=== PATIENT | male | born 1955 | race Hispanic/Latino ===

== ENCOUNTER 2021-02-05 09:42 | Inpatient (IN) | payer OTHER ==
[~2021-02-05] VITALS: Ht 167.6 cm; Wt 70.0 kg
[2021-02-05] MEDS ORDERED: MECL-226 PO (09:58)
[2021-02-05] MEDS ORDERED: CANA300T PO (09:58)
[2021-02-05] MEDS ORDERED: METF-445 PO (09:58)
[2021-02-05] MEDS ORDERED: LOSA50TA64 PO (09:58)
[2021-02-05] MEDS ORDERED: METO-409 PO (10:02)
[2021-02-05] MEDS ORDERED: AMLO-257 PO (10:02)
[2021-02-05 10:10] LABS: BASOPHILS % (AUTO) 0.3 % (0.0-5.0); EOSINOPHILS % (AUTO) 1.7 % (0.0-8.0); HEMATOCRIT 31.4 % (42-54); LYMPHOCYTES % (AUTO) 18.8 % (21.0-51.0); MEAN CORPUSCULAR HEMOGLOBIN 29.8 pg (27.0-33.0); MEAN CORPUSCULAR HGB CONC 35.4 g/dL (32.0-36.0); MEAN CORPUSCULAR VOLUME 84.4 fL (79-99); MONOCYTES % (AUTO) 6.2 % (3.0-13.0); NEUTROPHILS % (AUTO) 72.7 % (40.0-77.0); PLATELET COUNT (AUTO) 206 K/uL (130-400); RED BLOOD CELL COUNT(AUTO) 3.72 MIL/uL (4.50-6.20); RED CELL DISTRIBUTION WIDTH 12.3 % (11.0-15.5); WHITE BLOOD COUNT (AUTO) 9.5 K/uL (4.8-10.8)
[2021-02-05 10:15] LABS: POTASSIUM 4.2 mmol/L (3.5-5.1)
[2021-02-05 10:19] LABS: ALBUMIN 2.4 g/dL (3.5-5.0); BILIRUBIN,TOTAL 0.6 mg/dL (0.2-1.0); TOTAL PROTEIN, SERUM 6.1 g/dL (6.0-8.3)
[2021-02-05] MEDS: HYDRALAZINE 20MG/ML VIAL ONE ×2 (10:28→10:31)
[2021-02-05] MEDS: HYDRALAZINE 20MG/ML VIAL IV SCH ×2 (10:30→11:17)
[2021-02-05] MEDS ORDERED: ASPIRIN 81MG CHEW TAB PO ONE (17:30)
[2021-02-05 17:38] LABS: HEMOGLOBIN A1C 10.6 % (4.0-6.0)
[2021-02-05 17:50] LABS: CREATININE 2.7 mg/dL (0.5-1.5); POTASSIUM 4.1 mmol/L (3.5-5.1)
[2021-02-05 18:03] LABS: MAGNESIUM 1.8 mg/dL (1.80-2.40); PHOSPHORUS 4.8 mg/dL (2.5-4.9); THYROID STIMULATING HORMONE 3.2 uIU/mL (0.36-3.74); URIC ACID 5.1 mg/dL (2.6-7.2)
[2021-02-05] MEDS: 0.9%NACL 1000ML 1,000 ML IV SCH (19:00)
[2021-02-05] MEDS: CEFTRIAXONE 1G VIAL IVP SCH (19:09)
[2021-02-05] MEDS ORDERED: ASPIRIN 81MG CHEW TAB ONE (20:16)
[2021-02-05] MEDS: ATORVASTATIN 40 MG TABLET PO SCH (20:24)
[2021-02-05] MEDS ORDERED: MAGNESIUM 2GM PREMIX 50ML 50 ML IV PRN (22:30)
[2021-02-05 22:35] VITALS: BP 204/98
[2021-02-05] MEDS ORDERED: MECL-160 PO (23:03)
[2021-02-05 23:14] LABS: APPEARANCE,URINE Clear (CLEAR); BILIRUBIN,URINE Negative (NEGATIVE); COLOR,URINE Yellow (YELLOW); GLUCOSE, URINE (UA) >=1000 mg/dL (NEGATIVE); KETONES,URINE 15 mg/dL (NEGATIVE); LEUKOCYTE ESTERASE ,URINE Negative (NEGATIVE); NITRATE,URINE Negative (NEGATIVE); OCCULT BLOOD,URINE Moderate (NEGATIVE); PROTEIN,URINE >=1000 mg/dL (NEGATIVE)
[2021-02-05 23:18] LABS: CREATININE,URINE RANDOM 78 mg/dL (30-135); SODIUM,URINE RANDOM 46 mmol/l (40-220)
[2021-02-05 23:41] LABS: BACTERIA,URINE None Seen /HPF (None Seen); WBC,URINE 0-1 /HPF (0-1)
[2021-02-05 23:45] LABS: HYALINE CASTS, URINE 0-1 /LPF (0-1 /LPF); SQUAMOUS EPITHELIAL CELL,UR Few /HPF (0-2)
[2021-02-06 03:00] VITALS: BP 207/97
[2021-02-06 03:55] LABS: BASOPHILS % (AUTO) 0.5 % (0.0-5.0); EOSINOPHILS % (AUTO) 1.4 % (0.0-8.0); HEMATOCRIT 30.6 % (42-54); LYMPHOCYTES % (AUTO) 19.2 % (21.0-51.0); MEAN CORPUSCULAR HEMOGLOBIN 29.9 pg (27.0-33.0); MEAN CORPUSCULAR HGB CONC 34.6 g/dL (32.0-36.0); MEAN CORPUSCULAR VOLUME 86.2 fL (79-99); MONOCYTES % (AUTO) 7.8 % (3.0-13.0); NEUTROPHILS % (AUTO) 70.7 % (40.0-77.0); PLATELET COUNT (AUTO) 218 K/uL (130-400); RED BLOOD CELL COUNT(AUTO) 3.55 MIL/uL (4.50-6.20); RED CELL DISTRIBUTION WIDTH 12.2 % (11.0-15.5); WHITE BLOOD COUNT (AUTO) 9.8 K/uL (4.8-10.8)
[2021-02-06 04:09] LABS: CREATININE 2.8 mg/dL (0.5-1.5); MAGNESIUM 2.7 mg/dL (1.80-2.40); PHOSPHORUS 5.9 mg/dL (2.5-4.9); POTASSIUM 4.1 mmol/L (3.5-5.1); URIC ACID 5.5 mg/dL (2.6-7.2)
[2021-02-06] MEDS ORDERED: INSULIN HUMULIN R 100 UNIT/ML 3ML ONE (06:57)
[2021-02-06] MEDS: INSULIN HUMULIN R 100 UNIT/ML 3ML SQ SCH ×4 (07:00→20:27)
[2021-02-06 07:30] VITALS: BP 199/96
[2021-02-06] MEDS: HYDRALAZINE 20MG/ML VIAL IV SCH (08:48)
[2021-02-06] MEDS ORDERED: ASPIRIN 81MG CHEW TAB PO SCH (09:00)
[2021-02-06 11:00] VITALS: BP 169/95
[2021-02-06] MEDS: METOPROLOL SUCCINATE 50 MG TAB.SR.24H PO SCH (11:01)
[2021-02-06] MEDS: LOSARTAN 25 MG TABLET PO SCH (11:01)
[2021-02-06] MEDS: ASPIRIN 325MG EC TAB PO SCH (11:01)
[2021-02-06] MEDS: CLOPIDOGREL 75MG TAB PO SCH (11:02)
[2021-02-06] MEDS ORDERED: INSULIN HUMULIN R 100 UNIT/ML 3ML SQ ONE (12:00)
[2021-02-06] MEDS: 0.9%NACL 1000ML 1,000 ML IV SCH (13:00)
[2021-02-06 16:00] VITALS: BP 179/91
[2021-02-06] MEDS: CEFTRIAXONE 1G VIAL IVP SCH (16:55)
[2021-02-06 20:16] VITALS: BP 177/88
[2021-02-06] MEDS: INSULIN GLARGINE 100 UNITS/ML 10 ML VIAL SQ SCH (20:29)
[2021-02-06] MEDS: ATORVASTATIN 40 MG TABLET PO SCH (20:36)
[2021-02-06 23:25] VITALS: BP 177/83
[2021-02-07 03:53] VITALS: BP 229/98
[2021-02-07] MEDS: HYDRALAZINE 20MG/ML VIAL IV PRN (04:03)
[2021-02-07 04:16] LABS: HEMATOCRIT 28.5 % (42-54); MEAN CORPUSCULAR HEMOGLOBIN 29.8 pg (27.0-33.0); MEAN CORPUSCULAR HGB CONC 34.7 g/dL (32.0-36.0); MEAN CORPUSCULAR VOLUME 85.8 fL (79-99); PLATELET COUNT (AUTO) 195 K/uL (130-400); RED BLOOD CELL COUNT(AUTO) 3.32 MIL/uL (4.50-6.20); RED CELL DISTRIBUTION WIDTH 12.2 % (11.0-15.5); WHITE BLOOD COUNT (AUTO) 8.2 K/uL (4.8-10.8)
[2021-02-07 04:34] LABS: CREATININE 2.5 mg/dL (0.5-1.5); POTASSIUM 3.6 mmol/L (3.5-5.1)
[2021-02-07 05:08] LABS: BASOPHILS % (MANUAL) 2 % (0-2); EOSINOPHILS % (MANUAL) 1 % (1-6); LYMPHOCYTES % (MANUAL) 28 % (22-44); MONOCYTES % (MANUAL) 3 % (2-9); SEGMENTED NEUTROPHILS % 66 % (40-70)
[2021-02-07 05:09] LABS: MAN.DIFF COMMENT-IMPRESSION MANUAL DIFFERENTIAL
[2021-02-07 05:12] LABS: PLATELET MORPHOLOGY COMMENT ADEQUATE
[2021-02-07] MEDS: INSULIN HUMULIN R 100 UNIT/ML 3ML SQ SCH ×4 (06:08→20:45)
[2021-02-07] MEDS ORDERED: MIDAZOLAM HCL 1 MG/ML 2ML VIAL ONE (07:18)
[2021-02-07] MEDS ORDERED: FENTANYL CITRATE PF 50 MCG/1 ML 2ML VIAL ONE (07:18)
[2021-02-07 08:58] VITALS: BP 188/96
[2021-02-07] MEDS: 0.9%NACL 1000ML 1,000 ML IV SCH (09:00)
[2021-02-07] MEDS: METOPROLOL SUCCINATE 50 MG TAB.SR.24H PO SCH (10:16)
[2021-02-07] MEDS: LOSARTAN 25 MG TABLET PO SCH (10:16)
[2021-02-07] MEDS: ASPIRIN 325MG EC TAB PO SCH (10:17)
[2021-02-07] MEDS: CLOPIDOGREL 75MG TAB PO SCH (10:17)
[2021-02-07] MEDS: HYDRALAZINE 20MG/ML VIAL IV SCH (10:30)
[2021-02-07 11:02] VITALS: BP 184/91
[2021-02-07 15:39] VITALS: BP 189/92
[2021-02-07] MEDS: CEFTRIAXONE 1G VIAL IVP SCH (17:42)
[2021-02-07] MEDS: ATORVASTATIN 40 MG TABLET PO SCH (19:40)
[2021-02-07 19:48] VITALS: BP 217/101
[2021-02-07] MEDS: INSULIN GLARGINE 100 UNITS/ML 10 ML VIAL SQ SCH (20:45)
[2021-02-07 23:20] VITALS: BP 180/93
[2021-02-08 03:43] VITALS: BP 190/97
[2021-02-08 04:03] LABS: BASOPHILS % (AUTO) 0.3 % (0.0-5.0); EOSINOPHILS % (AUTO) 2.6 % (0.0-8.0); HEMATOCRIT 27.9 % (42-54); LYMPHOCYTES % (AUTO) 14.4 % (21.0-51.0); MEAN CORPUSCULAR HGB CONC 34.8 g/dL (32.0-36.0); MEAN CORPUSCULAR VOLUME 86.4 fL (79-99); MONOCYTES % (AUTO) 7.5 % (3.0-13.0); NEUTROPHILS % (AUTO) 74.9 % (40.0-77.0); PLATELET COUNT (AUTO) 193 K/uL (130-400); RED BLOOD CELL COUNT(AUTO) 3.23 MIL/uL (4.50-6.20); RED CELL DISTRIBUTION WIDTH 12.1 % (11.0-15.5); WHITE BLOOD COUNT (AUTO) 8.6 K/uL (4.8-10.8)
[2021-02-08 04:17] LABS: CREATININE 2.5 mg/dL (0.5-1.5); POTASSIUM 3.4 mmol/L (3.5-5.1)
[2021-02-08] MEDS: 0.9%NACL 1000ML 1,000 ML IV SCH (04:19)
[2021-02-08] MEDS: INSULIN HUMULIN R 100 UNIT/ML 3ML SQ SCH ×4 (06:07→20:17)
[2021-02-08 07:44] VITALS: BP 193/90
[2021-02-08] MEDS: ASPIRIN 325MG EC TAB PO SCH (07:51)
[2021-02-08] MEDS: CLOPIDOGREL 75MG TAB PO SCH (07:51)
[2021-02-08] MEDS: LOSARTAN 25 MG TABLET PO SCH (07:51)
[2021-02-08] MEDS: METOPROLOL SUCCINATE 50 MG TAB.SR.24H PO SCH (07:51)
[2021-02-08] MEDS: HYDRALAZINE 20MG/ML VIAL IV SCH (08:51)
[2021-02-08] MEDS: ACETAMINOPHEN 325 MG TAB PO PRN (08:58)
[2021-02-08] MEDS: HYDRALAZINE 20MG/ML VIAL IV PRN ×2 (10:34→20:15)
[2021-02-08 10:58] VITALS: BP 240/99
[2021-02-08] MEDS ORDERED: KCL 20 MEQ ERTAB PO ONE (16:00)
[2021-02-08 16:13] VITALS: BP 188/93
[2021-02-08] MEDS: CEFTRIAXONE 1G VIAL IVP SCH (16:53)
[2021-02-08 19:40] VITALS: BP 212/102
[2021-02-08] MEDS: LACTULOSE 20 GM/30 ML UDCUP PO SCH (20:03)
[2021-02-08] MEDS: ATORVASTATIN 40 MG TABLET PO SCH (20:03)
[2021-02-08] MEDS: INSULIN GLARGINE 100 UNITS/ML 10 ML VIAL SQ SCH (20:16)
[2021-02-08] MEDS ORDERED: DOCUSATE SODIUM 100 MG CAP PO SCH (21:00)
[2021-02-08 23:41] VITALS: BP 148/75
[2021-02-09 04:00] VITALS: BP 162/79
[2021-02-09] MEDS: INSULIN HUMULIN R 100 UNIT/ML 3ML SQ SCH ×4 (05:30→21:19)
[2021-02-09 08:03] VITALS: BP 184/111
[2021-02-09] MEDS: LACTULOSE 20 GM/30 ML UDCUP PO SCH ×2 (09:00→21:00)
[2021-02-09] MEDS: LOSARTAN 50 MG TABLET PO SCH (09:38)
[2021-02-09] MEDS: ASPIRIN 325MG EC TAB PO SCH (09:38)
[2021-02-09] MEDS: CLOPIDOGREL 75MG TAB PO SCH (09:38)
[2021-02-09] MEDS: AMLODIPINE 5 MG TAB PO SCH (09:39)
[2021-02-09] MEDS: METOPROLOL SUCCINATE 50 MG TAB.SR.24H PO SCH (09:39)
[2021-02-09 09:52] LABS: CREATININE 2.6 mg/dL (0.5-1.5); POTASSIUM 4.1 mmol/L (3.5-5.1)
[2021-02-09] MEDS: HYDRALAZINE 20MG/ML VIAL IV SCH (10:30)
[2021-02-09 11:17] VITALS: BP 162/85
[2021-02-09 15:49] VITALS: BP 168/80
[2021-02-09] MEDS: CEFTRIAXONE 1G VIAL IVP SCH (17:08)
[2021-02-09 21:00] VITALS: BP 172/94
[2021-02-09] MEDS: INSULIN GLARGINE 100 UNITS/ML 10 ML VIAL SQ SCH (21:17)
[2021-02-09] MEDS: ACETAMINOPHEN 325 MG TAB PO PRN (21:18)
[2021-02-09] MEDS: ATORVASTATIN 40 MG TABLET PO SCH (21:18)
[2021-02-09] MEDS ORDERED: ZOLPIDEM TARTRATE 5 MG TAB PO PRN (23:00)
[2021-02-10 00:08] VITALS: BP 187/90
[2021-02-10] MEDS ORDERED: ZOLPIDEM TARTRATE 5 MG TAB PO PRN (00:30)
[2021-02-10 04:00] VITALS: BP 172/89
[2021-02-10] MEDS: INSULIN HUMULIN R 100 UNIT/ML 3ML SQ SCH ×4 (06:08→21:00)
[2021-02-10] MEDS: HYDRALAZINE 20MG/ML VIAL IV SCH (07:35)
[2021-02-10 08:05] VITALS: BP 221/107
[2021-02-10] MEDS: LOSARTAN 50 MG TABLET PO SCH (08:13)
[2021-02-10] MEDS: AMLODIPINE 5 MG TAB PO SCH (08:13)
[2021-02-10] MEDS: CLOPIDOGREL 75MG TAB PO SCH (08:13)
[2021-02-10] MEDS: ASPIRIN 325MG EC TAB PO SCH (08:14)
[2021-02-10] MEDS: METOPROLOL SUCCINATE 50 MG TAB.SR.24H PO SCH (08:14)
[2021-02-10] MEDS: LACTULOSE 20 GM/30 ML UDCUP PO SCH ×2 (08:14→19:47)
[2021-02-10] MEDS: HYDRALAZINE 20MG/ML VIAL IV PRN ×2 (08:47→18:29)
[2021-02-10 11:49] VITALS: BP 173/76
[2021-02-10 16:00] VITALS: BP 203/94
[2021-02-10] MEDS: CEFTRIAXONE 1G VIAL IVP SCH (18:29)
[2021-02-10] MEDS: ATORVASTATIN 40 MG TABLET PO SCH (19:48)
[2021-02-10 20:08] VITALS: BP 130/86
[2021-02-10] MEDS: INSULIN GLARGINE 100 UNITS/ML 10 ML VIAL SQ SCH (21:23)
[2021-02-11] VITALS (9 sets, daily range): BP systolic 138–201; BP diastolic 68–102
[2021-02-11 03:47] LABS: APPEARANCE,URINE Clear (CLEAR); BILIRUBIN,URINE Negative (NEGATIVE); COLOR,URINE Yellow (YELLOW); GLUCOSE, URINE (UA) >=1000 mg/dL (NEGATIVE); KETONES,URINE Negative (NEGATIVE); LEUKOCYTE ESTERASE ,URINE Negative (NEGATIVE); NITRATE,URINE Negative (NEGATIVE); OCCULT BLOOD,URINE Small (NEGATIVE); PH,URINE 5.5 (5.0-8.0); PROTEIN,URINE >=1000 mg/dL (NEGATIVE); UROBILINOGEN,URINE 0.2 mg/dL (0.2-1.0)
[2021-02-11 04:03] LABS: BACTERIA,URINE None Seen /HPF (None Seen); MUCUS,URINE Rare LPF (None Seen); RBC,URINE 0-1 /HPF (0-1); SQUAMOUS EPITHELIAL CELL,UR Rare /HPF (0-2); WBC,URINE None Seen /HPF (0-1); YEAST,URINE BUDDING None Seen /HPF (None Seen)
[2021-02-11] MEDS: HYDRALAZINE 20MG/ML VIAL IV PRN ×2 (04:20→16:31)
[2021-02-11] MEDS: INSULIN HUMULIN R 100 UNIT/ML 3ML SQ SCH ×4 (06:21→21:00)
[2021-02-11] MEDS: AMLODIPINE 5 MG TAB PO SCH (07:45)
[2021-02-11] MEDS: CLOPIDOGREL 75MG TAB PO SCH (07:45)
[2021-02-11] MEDS: METOPROLOL SUCCINATE 50 MG TAB.SR.24H PO SCH (07:46)
[2021-02-11] MEDS: LOSARTAN 50 MG TABLET PO SCH (07:46)
[2021-02-11] MEDS: ACETAMINOPHEN 325 MG TAB PO PRN (07:46)
[2021-02-11] MEDS: LACTULOSE 20 GM/30 ML UDCUP PO SCH ×2 (07:46→21:08)
[2021-02-11 08:27] LABS: HEMATOCRIT 28.7 % (42-54); MEAN CORPUSCULAR HEMOGLOBIN 29.8 pg (27.0-33.0); MEAN CORPUSCULAR HGB CONC 34.1 g/dL (32.0-36.0); MEAN CORPUSCULAR VOLUME 87.2 fL (79-99); RED BLOOD CELL COUNT(AUTO) 3.29 MIL/uL (4.50-6.20); RED CELL DISTRIBUTION WIDTH 12.4 % (11.0-15.5); RETICULOCYTE % (AUTO) 1.49 % (0.42-2.23); WHITE BLOOD COUNT (AUTO) 8.3 K/uL (4.8-10.8)
[2021-02-11 08:41] LABS: ALBUMIN 2.1 g/dL (3.5-5.0); CREATININE 2.7 mg/dL (0.5-1.5); POTASSIUM 3.8 mmol/L (3.5-5.1)
[2021-02-11 08:57] LABS: % IRON SATURATION 24.2 % (30-44)
[2021-02-11] MEDS ORDERED: ASPIRIN 81 MG EC TAB PO SCH (09:00)
[2021-02-11] MEDS ORDERED: HYDROCHLOROTHIAZIDE 25 MG TABLET PO SCH (09:00)
[2021-02-11] MEDS ORDERED: METOPROLOL SUCCINATE 50 MG TAB.SR.24H PO SCH (09:00)
[2021-02-11 09:13] LABS: BILIRUBIN,TOTAL 0.3 mg/dL (0.2-1.0); MAGNESIUM 2.1 mg/dL (1.80-2.40); TOTAL PROTEIN, SERUM 5.6 g/dL (6.0-8.3)
[2021-02-11] MEDS: HYDRALAZINE 20MG/ML VIAL IV SCH (10:30)
[2021-02-11] MEDS: METFORMIN HCL 500 MG TABLET PO SCH ×2 (14:25→16:54)
[2021-02-11] MEDS: CEFTRIAXONE 1G VIAL IVP SCH (16:58)
[2021-02-11] MEDS: ATORVASTATIN 40 MG TABLET PO SCH (21:08)
[2021-02-11] MEDS: INSULIN GLARGINE 100 UNITS/ML 10 ML VIAL SQ SCH (21:09)
== END 2021-02-11 22:31 | DRG 64 ==
LOC: EDH 09:42 → EDHIP 09:43 → 4AH 22:30
PROVIDERS: ADMIT Internal Medicine; ATTEND Internal Medicine
PROC: B246ZZ4 Ultrasonography of Right and Left Heart, Transesophageal (ICD-10-PCS; principal; 2021-02-07)
DX: I63.542 Cerebral infarction due to unspecified occlusion or stenosis of left cerebellar artery (principal); I21.4 Non-ST elevation (NSTEMI) myocardial infarction; N17.9 Acute kidney failure, unspecified; I16.1 Hypertensive emergency; I69.354 Hemiplegia and hemiparesis following cerebral infarction affecting left non-dominant side; I12.9 Hypertensive chronic kidney disease with stage 1 through stage 4 chronic kidney disease, or unspecified chronic kidney disease; N18.9 Chronic kidney disease, unspecified; E78.5 Hyperlipidemia, unspecified; I65.03 Occlusion and stenosis of bilateral vertebral arteries; E11.22 Type 2 diabetes mellitus with diabetic chronic kidney disease; E78.00 Pure hypercholesterolemia, unspecified; I25.10 Atherosclerotic heart disease of native coronary artery without angina pectoris; D64.9 Anemia, unspecified; F12.90 Cannabis use, unspecified, uncomplicated; F17.200 Nicotine dependence, unspecified, uncomplicated; G31.9 Degenerative disease of nervous system, unspecified; R29.6 Repeated falls; Z87.440 Personal history of urinary (tract) infections; Z91.19 Patient's noncompliance with other medical treatment and regimen; Z83.3 Family history of diabetes mellitus; Z83.6 Family history of other diseases of the respiratory system
CPT/HCPCS: 36415; 70450; 70544; 70547; 70551; 71045; 73070; 73100; 73502; 73521; 73551; 76770; 80048; 80053; 81001; 82570; 82607; 82728; 82746; 82948; 83036; 83540; 83550; 83735; 84100; 84145; 84300; 84443; 84484; 84540; 84550; 85025; 85027; 85045; 87088; 92522; 92610; 93005; 93306; 93313; 93880; 97039; 99152; 99153; 99291; G0378; J0360; J0696; J1815; J2250; J3010; J3475; J7030